=== PATIENT | female | born 1950 | race Caucasian/White ===

== ENCOUNTER 2018-04-15 12:23 | Emergency (ER) | payer OTHER, MEDICARE ==
[~2018-04-15] VITALS: Ht 162.6 cm; Wt 90.7 kg
[~2018-04-15 12:23] MED LIST changes: -UNICOMPLEX M TA1 TA1 PO
[2018-04-15] MEDS ORDERED: UNICOMPLEX M TA1 TA1 PO (12:47)
[2018-04-15 13:01] LABS: ABSOLUTE EOSINOPHILS 0.1 thou/uL (0.0-0.7); ABSOLUTE LYMPHOCYTES 1.9 thou/uL (0.8-5.3); ABSOLUTE MONOCYTES 0.3 thou/uL (0.0-1.2); ABSOLUTE NEUTROPHILS 2.8 thou/uL (1.6-8.1); BASOPHILS 0.6 %; HEMATOCRIT 38.3 % (37.0-47.0); HEMOGLOBIN 12.7 gm/dL (12.0-15.0); LYMPHOCYTES 37.2 %; MCH 29.2 pg (26.0-34.0); MCHC 33.2 g/dL (28.0-37.0); MCV 87.9 fL (80.0-100.0); MONOCYTES 5.7 %; MPV 8.4 fl. (7.2-11.1); NUCLEATED RBCS 0 /100WBC; PLATELET COUNT* 273 thou/uL (150-400); POLYS 54.5 %; RBC 4.36 mil/uL (4.20-5.00); RDW-CV 13.4 % (10.5-14.5); WBC 5.2 thou/uL (4.0-11.0)
[2018-04-15 13:10] LABS: CALCIUM 8.9 mg/dL (8.5-10.1)
[2018-04-15 13:15] LABS: ALBUMIN 3.4 g/dL (3.4-5.0); TOTAL BILIRUBIN 0.3 mg/dL (<0.1-1.0); TOTAL PROTEIN 6.8 g/dL (6.4-8.2)
[2018-04-15 14:36] VITALS: BP 154/68
--- NOTE | 2018-04-15 18:06 | EKG ---
[place] [address] ELECTROCARDIOGRAM REPORT Name: TERESA JAVIER Room: [facility]#: [id number] Admission: 04/15/18 Attend Phys: Discharge: 04/15/18 Date of : 46 Report #: [id number] THIS REPORT FOR: //name// [facility] ED Test Date: 2018-04-15 Test Time: 12:35:31 Pat Name: TERESA JAVIER Department: Room: Gender: F Senior Database Engineer: KALINA : 1950 Requested By: Kecia Shen Order Number: [id number] MD: Subhash Nevarez Measurements Intervals [place] Rate: 58 P: 25 KS: 208 QRS: -32 QRSD: 91 T: 2 QT: 451 QTc: 444 Interpretive Statements Sinus rhythm Atrial premature complexes Left axis deviation Borderline T abnormalities, anterior leads Compared to ECG 04/21/2016 11:22:04 Atrial premature complex(es) now present T-wave abnormality now present Electronically Signed On 04-15-2018 18:06:04 CDT by Subhash Nevarez [email or web address] <ELECTRONICALLY SIGNED> By: Subhash Nevarez MD, FACC 04/15/18 1806 1235 1235 Subhash Nevarez MD, [facility] /EPI
== END 2018-04-15 14:38 | disposition home or self-care (01) ==
LOC: M.ERS 12:23
PROVIDERS: Personal Emergency Response Attendant
DX: R00.1 Bradycardia, unspecified (principal); Z88.6 Allergy status to analgesic agent; Z88.8 Allergy status to other drugs, medicaments and biological substances

== ENCOUNTER → 2018-04-15 | Outpatient (CLI) | payer OTHER, MEDICARE ==
[~2018-04-15] MED LIST: FLEXERIL PO; IBUPROFEN 800800 M1 PO; NORTRIPTYLINE H10 M2 PO; PRILOSEC 20 MG20 MG PO; UNICOMPLEX M TA1 TA1 PO
== END ==
LOC: M.RAD 07:00
DX: Z12.31 Encounter for screening mammogram for malignant neoplasm of breast (principal)

== ENCOUNTER 2018-11-01 18:17 | Inpatient (IN) | payer OTHER, MEDICARE ==
[~2018-11-01] VITALS: Ht 165.1 cm; Wt 93.9 kg
[~2018-11-01 18:17] MED LIST changes: +UNICOMPLEX M TA1 TA1 PO
[2018-11-01 18:23] VITALS: BP 162/80
[2018-11-01 18:44] LABS: ABSOLUTE BASOPHILS 0.1 thou/uL (0.0-0.2); ABSOLUTE EOSINOPHILS 0.1 thou/uL (0.0-0.7); ABSOLUTE MONOCYTES 0.4 thou/uL (0.0-1.2); ABSOLUTE NEUTROPHILS 4.7 thou/uL (1.6-8.1); BASOPHILS 0.8 %; EOSINOPHILS 0.9 %; HEMATOCRIT 38.2 % (37.0-47.0); HEMOGLOBIN 12.6 gm/dL (12.0-15.0); LYMPHOCYTES 28.1 %; MCH 29.7 pg (26.0-34.0); MCV 90.1 fL (80.0-100.0); MONOCYTES 4.9 %; MPV 7.4 fl. (7.2-11.1); NUCLEATED RBCS 0 /100WBC; PLATELET COUNT* 214 thou/uL (150-400); POLYS 65.3 %; RBC 4.25 mil/uL (4.20-5.00); RDW-CV 14.1 % (10.5-14.5); WBC 7.2 thou/uL (4.0-11.0)
[2018-11-01 18:54] LABS: CALCIUM 8.8 mg/dL (8.5-10.1); CREATININE 1.4 mg/dL (0.6-1.3); POTASSIUM 3.8 mmol/L (3.5-5.1)
[2018-11-01 19:04] LABS: ALBUMIN 3.2 g/dL (3.4-5.0); TOTAL BILIRUBIN 0.2 mg/dL (<0.1-1.0); TOTAL PROTEIN 6.7 g/dL (6.4-8.2); TROPONIN-I LEVEL 0.07 ng/mL (<0.06)
[2018-11-01 19:38] LABS: APTT 25.3 Seconds (25.0-31.3); PROTIME 10.5 Seconds (9.20-11.50)
[2018-11-01 21:25] VITALS: BP 155/81
[2018-11-01 21:43] LABS: TROPONIN-I LEVEL 0.08 ng/mL (<0.06)
[2018-11-01 21:45] VITALS: BP 155/78
[2018-11-02 00:35] VITALS: BP 134/80
[2018-11-02 04:32] VITALS: BP 152/80
[2018-11-02 07:55] VITALS: BP 131/99
--- NOTE | 2018-11-02 10:30 | EKG ---
[place] [address] ELECTROCARDIOGRAM REPORT Name: TERESA JAVIER Room: [address] ADM IN [facility].#: [id number] Admission: 11/01/18 Attend Phys: George Sidhu MD Discharge: Date of : 46 Report #: [id number] THIS REPORT FOR: //name// [facility] ED Test Date: 2018-11-01 Test Time: 18:24:35 Pat Name: TERESA CONCEPCION Department: Room: [facility] Gender: F Material Handling Supervisor: KALINA : 1950 Requested By: Kecia Huff Order Number: [id number] MD: Ted Carey Measurements Intervals [place] Rate: 82 P: 91 IA: 200 QRS: -40 QRSD: 92 T: 53 QT: 381 QTc: 445 Interpretive Statements Sinus rhythm Inferior infarct, old septal infarct, old Baseline wander in lead(s) I,aVR Compared to ECG 04/15/2018 12:35:31 Atrial premature complex(es) no longer present Electronically Signed On 11-02-2018 10:29:49 [employer]GA INSTRU[employer] by Ted Carey [email or web address] <ELECTRONICALLY SIGNED> By: Ted Carey MD, [facility] 11/02/18 1029 1824 1824 Ted Carey MD, [facility] /EPI
[2018-11-02 11:55] VITALS: BP 116/81
[2018-11-03] VITALS: BP 130/73
[2018-11-03 04:00] VITALS: BP 144/87
[2018-11-03 07:40] VITALS: BP 145/83
[2018-11-03 11:31] VITALS: BP 95/69
[2018-11-03 16:26] VITALS: BP 148/103
[2018-11-04 00:05] VITALS: BP 165/78
[2018-11-04 04:00] VITALS: BP 158/77
[2018-11-04 08:05] VITALS: BP 141/83
[2018-11-04] MEDS ORDERED: PREDNISONE 10 M10 MG PO (11:23)
[2018-11-04 12:12] VITALS: BP 134/63
[2018-11-04] MEDS ORDERED: XARELTO15 MG PO (13:38)
[2018-11-04 13:41] VITALS: BP 134/63
[2018-11-04 15:52] VITALS: BP 134/63
== END 2018-11-04 16:25 | disposition home or self-care (01) | DRG 299 ==
LOC: M.ERS 18:17 → M.3W 20:48 → M.2W 20:48 → M.TBA-ER 20:48 → M.2W 21:35 → M.3W 11-02 17:52
PROVIDERS: Physician Assistant; ADMIT Internal Medicine
DX: I82.441 Acute embolism and thrombosis of right tibial vein (principal); I26.99 Other pulmonary embolism without acute cor pulmonale; Z88.8 Allergy status to other drugs, medicaments and biological substances; Z91.041 Radiographic dye allergy status

== ENCOUNTER 2019-06-23 21:42 | Emergency (ER) | payer OTHER, MEDICARE ==
[~2019-06-23] VITALS: Ht 162.6 cm; Wt 87.1 kg
[~2019-06-23 21:42] MED LIST changes: +PREDNISONE 10 M10 MG PO; +XARELTO15 MG PO
[2019-06-23] MEDS ORDERED: HYDROCODON-ACE1 EAC8 PO (22:50)
[2019-06-23 23:40] VITALS: BP 151/87
== END 2019-06-23 23:40 | disposition home or self-care (01) ==
LOC: M.ERS 21:42
DX: S82.141A Displaced bicondylar fracture of right tibia, initial encounter for closed fracture (principal); Z88.6 Allergy status to analgesic agent; Z91.041 Radiographic dye allergy status; Z88.1 Allergy status to other antibiotic agents; W01.0XXA Fall on same level from slipping, tripping and stumbling without subsequent striking against object, initial encounter; Y92.009 Unspecified place in unspecified non-institutional (private) residence as the place of occurrence of the external cause; Y93.89 Activity, other specified; Y99.8 Other external cause status

== ENCOUNTER → 2019-09-08 | Outpatient (CLI) | payer OTHER, MEDICARE ==
[~2019-09-08] MED LIST changes: +HYDROCODON-ACE1 EAC8 PO
[2019-09-08 11:45] LABS: CALCIUM 9.2 mg/dL (8.5-10.1); CREATININE 1.2 mg/dL (0.6-1.3); POTASSIUM 3.1 mmol/L (3.5-5.1)
== END ==
LOC: M.LAB 11:18
PROVIDERS: Nurse Practitioner Family
DX: N17.9 Acute kidney failure, unspecified (principal)

== ENCOUNTER → 2019-09-23 | Outpatient (CLI) | payer OTHER, MEDICARE ==
[2019-09-23 11:17] LABS: CALCIUM 9.3 mg/dL (8.5-10.1); CREATININE 2.8 mg/dL (0.6-1.3); POTASSIUM 3.5 mmol/L (3.5-5.1)
== END ==
LOC: M.LAB 10:43
PROVIDERS: Nurse Practitioner Family
DX: N17.9 Acute kidney failure, unspecified (principal)

== ENCOUNTER → 2019-10-04 | Outpatient (CLI) | payer OTHER, MEDICARE ==
[2019-10-04 15:44] LABS: CALCIUM 9.1 mg/dL (8.5-10.1); CREATININE 2.9 mg/dL (0.6-1.3); POTASSIUM 3.7 mmol/L (3.5-5.1)
[2019-10-04 15:49] LABS: ALBUMIN 3.7 g/dL (3.4-5.0); TOTAL BILIRUBIN 0.3 mg/dL (<0.1-1.0)
== END ==
LOC: M.LAB 15:20
PROVIDERS: General Practice
DX: D64.9 Anemia, unspecified (principal); M54.9 Dorsalgia, unspecified; R53.83 Other fatigue; M25.50 Pain in unspecified joint

== ENCOUNTER → 2019-10-18 | Outpatient (CLI) | payer OTHER, MEDICARE ==
[2019-10-18 17:10] LABS: URINE BILIRUBIN NEGATIVE (Negative); URINE BLOOD TRACE (Negative); URINE COLOR YELLOW; URINE GLUCOSE-RANDOM NEGATIVE (Negative); URINE KETONES NEGATIVE (Negative); URINE LEUKOCYTES 1+ (Negative); URINE NITRITE NEGATIVE (Negative); URINE PROTEIN NEGATIVE (Negative); URINE SPECIFIC GRAVITY 1.015 (1.005-1.030); URINE UROBILINOGEN 0.2 E.U./dl (0.2-1.0)
[2019-10-18 17:11] LABS: URINE CLARITY HAZY
[2019-10-18 17:19] LABS: SQUAMOUS 0-3 Few /LPF (0-3); URINE WBC 6-15 Few /HPF (0-5)
[2019-10-18 17:20] LABS: BACTERIA None Seen /HPF (None Seen); CASTS None Seen /LPF (None Seen); CRYSTALS None Seen /LPF (None Seen); MUCUS 0-3 Light strn/LPF (None Seen); URINE RBC None Seen /HPF (0-2)
== END ==
LOC: M.LAB 16:45
PROVIDERS: Internal Medicine Nephrology
DX: R35.0 Frequency of micturition (principal)

== ENCOUNTER → 2019-10-28 | Outpatient (CLI) | payer OTHER, MEDICARE ==
[2019-10-28 08:21] LABS: CALCIUM 8.5 mg/dL (8.5-10.1); CREATININE 1.8 mg/dL (0.6-1.3); POTASSIUM 3.9 mmol/L (3.5-5.1)
== END ==
LOC: M.LAB 07:47
PROVIDERS: Internal Medicine Nephrology
DX: N17.9 Acute kidney failure, unspecified (principal)

== ENCOUNTER → 2019-11-25 | Outpatient (CLI) | payer OTHER, MEDICARE ==
[2019-11-25 08:08] LABS: CALCIUM 9.1 mg/dL (8.5-10.1); CREATININE 1.9 mg/dL (0.6-1.3)
== END ==
LOC: M.LAB 07:33
PROVIDERS: Internal Medicine Nephrology
DX: N17.9 Acute kidney failure, unspecified (principal)

== ENCOUNTER → 2019-12-21 | Outpatient (CLI) | payer OTHER, MEDICARE | LOC: M.RAD 07:58 | DX: Z12.31 Encounter for screening mammogram for malignant neoplasm of breast (principal) ==

== ENCOUNTER → 2020-07-21 | Outpatient (CLI) | payer MEDICARE | LOC: M.ULTRA 14:40 | PROVIDERS: ATTEND Nurse Practitioner | DX: M79.604 Pain in right leg (principal) ==

== ENCOUNTER → 2020-08-14 | Outpatient (CLI) | payer MEDICARE ==
--- NOTE | 2020-08-14 11:33 | 2DMMODE ---
[place] [address] 2 D/M-MODE ECHOCARDIOGRAM Name: TERESA JAVIER Room: [facility]#: [id number] Admission: 08/14/20 Attend Phys: Pam Singh, Discharge: Date of : 46 Date of Service: 08/14/20 1133 Report #: [id number] THIS REPORT FOR: cc: Rosy Leonardo Ghaison F. DO Holkins, John M. MD [facility] ~ APPROVED REPORT Study performed: 08/14/2020 09:08:45 EXAM: Comprehensive 2D, Doppler, and color-flow Echocardiogram Patient Location: Out-Patient BSA: 1.91 HR: 55 bpm BP: 120/70 mmHg Other Information Study Quality: Good Indications Dyspnea 2D Dimensions IVSd: 10.84 (7-11mm) LVOT Diam: 20.02 (18-24mm) LVDd: 44.01 mm PWd: 10.48 (7-11mm) Ascending Ao: 31.68 (22-36mm) LVDs: 33.66 (25-40mm) Aortic Root: 30.34 mm Volumes Left Atrial Volume (Systole) LA ESV Index: 12.70 mL/m2 Aortic Valve AoV Peak Mervin.: 1.24 m/s AO Peak Gr.: 6.16 mmHg LVOT Max P.32 mmHg AO Mean Gr.: 3.10 mmHg LVOT Mean P.66 mmHg LVOT Max V: 0.91 m/s AO V2 VTI: 21.45 cm LVOT Mean V: 0.59 m/s EVANGELISTA (VTI): 2.72 cm2 LVOT V1 VTI: 18.54 cm Mitral Valve E/A Ratio: 0.50 [place] [address] 2 D/M-MODE ECHOCARDIOGRAM Name: TERESA JAVIER Room: [facility]#: [id number] Admission: 08/14/20 Attend Phys: Pam Singh, Discharge: Date of : 46 Date of Service: 08/14/20 1133 Report #: [id number] MV Decel. Time: 326.33 ms MV E Max Mervin.: 0.33 m/s MV PHT: 94.64 ms MVA (PHT): 2.32 cm2 TDI E/Lateral E': 4.13 E/Medial E': 4.13 Medial E' Mervin.: 0.08 m/s Lateral E' Mervin.: 0.08 m/s Pulmonary Valve PV Peak Mervin.: 0.74 m/s PV Peak Gr.: 2.17 mmHg Tricuspid Valve RAP Estimate: 5.00 mmHg TR Peak Gr.: 21.57 mmHg RVSP: 26.57 mmHg PA Pressure: 26.57 mmHg Left Ventricle The left ventricle is normal size. There is normal LV segmental wall motion. There is normal left ventricular wall thickness. Left ventricular systolic function is normal. The left ventricular ejection fraction is within the normal range. LVEF is 50-55%. Grade I - abnormal relaxation pattern. Right Ventricle The right ventricle is normal size. The right ventricular systolic function is normal. Atria The left atrium size is normal. The right atrium size is normal. Aortic Valve Mild aortic valve sclerosis. Mild aortic regurgitation. There is no aortic valvular stenosis. Mitral Valve The mitral valve is normal in structure. There is no mitral valve regurgitation noted. No evidence of mitral valve stenosis. Tricuspid Valve The tricuspid valve is normal in structure. There is no tricuspid valve regurgitation noted[place] [address] 2 D/M-MODE ECHOCARDIOGRAM Name: TERESA JAVIER Room: [facility]#: [id number] Admission: 08/14/20 Attend Phys: Pam Singh, Discharge: Date of : 46 Date of Service: 08/14/20 1133 Report #: [id number] The pulmonary valve is normal in structure. There is no pulmonic valvular regurgitation. Great Vessels The aortic root is normal in size. IVC is normal in size and collapses >50% with inspiration. Pericardium There is no pericardial effusion. <Conclusion> The left ventricle is normal size. There is normal left ventricular wall thickness. Left ventricular systolic function is normal. The left ventricular ejection fraction is within the normal range. LVEF is 50-55%. Grade I - abnormal relaxation pattern. The right ventricle is normal size. The left atrium size is normal. Mild aortic valve sclerosis. Mild aortic regurgitation. There is no aortic valvular stenosis. The mitral valve is normal in structure. The tricuspid valve is normal in structure. IVC is normal in size and collapses >50% with inspiration. There is no pericardial effusion. There is normal LV segmental wall motion. <ELECTRONICALLY SIGNED> By: Moise Upton MD, FACC 08/14/20 1133 1133 1133 Moise Upton MD, FACC /INF
== END ==
LOC: M.CRD 09:00
PROVIDERS: ATTEND Nurse Practitioner
DX: I35.1 Nonrheumatic aortic (valve) insufficiency (principal)

== ENCOUNTER → 2021-07-05 | Outpatient (CLI) | payer MEDICARE | LOC: M.RAD 10:49 | PROVIDERS: ATTEND General Practice | DX: Z12.31 Encounter for screening mammogram for malignant neoplasm of breast (principal) ==